=== PATIENT | male | born 1980 | race Caucasian/White ===

== ENCOUNTER 2016-11-07 10:11 | Emergency (ER) | payer MEDICAID ==
[~2016-11-07] VITALS: Ht 180.3 cm; Wt 77.1 kg
[2016-11-07 10:25] VITALS: BP 113/79
[2016-11-07] MEDS ORDERED: Oxycodone/Acetaminophen 5-325 ORAL ONE (10:45)
[2016-11-07 12:25] VITALS: BP 119/74
[2016-11-07] MEDS ORDERED: ROBAXIN-750750 MG PO (13:01)
[2016-11-07] MEDS ORDERED: IBUPROFEN800 MG ORAL (13:01)
--- NOTE | 2016-11-08 07:18 | Emergency Room Report ---
History of Present Illness General Chief Complaint: Pain Source: Patient Present Illness HPI 36 YO M with 1 week upper left back/shoulder pain and left neck stiffness. Worse with looking to left. Worse after playing golf 3 days ago. Worse when carrying 1 year old child. Didnt take any OTC meds. Denies assoc lower extremity weakness, urinary/fecal incontinence, fever/chills , dysuria, history of IVDU or malignancy. Allergies: Coded Allergies: PENICILLINS (Unverified Allergy, Unknown, 11/07/16) Uncoded Allergies: PENICILLIN (Allergy, Unknown, 11/07/16) Patient History Past Medical History: none Past Surgical History: none Pertinent Family History: none Social History: Denies: alcohol use, drug use, smoking Immunizations: UTD Reviewed Nursing Documentation: PMH: Agreed, PSxH: Agreed Nursing Documentation-PMH Hx Gastrointestinal Problems: No - IBS Review of Systems All Other Systems: negative except mentioned in HPI Physical Exam Vital Signs Date Time Temp Pulse Resp B/P Pulse Ox O2 Delivery O2 Flow Rate FiO2 11/07/16 10:25 98.1 92 16 113/79 100 Room Air Sp02 EP Interpretation: reviewed, normal General Appearance: normal inspection, well appearing, no apparent distress, alert, GCS 15, non-toxic Head: normocephalic, atraumatic Eyes: bilateral eye EOMI, bilateral eye PERRL ENT: normal ENT inspection, hearing grossly normal, normal voice Neck: normal inspection, full range of motion, supple, no bony tend Respiratory: normal inspection, lungs clear, normal breath sounds, no respiratory distress, no retraction, no wheezing Cardiovascular #1: regular rate, rhythm, no edema Gastrointestinal: normal inspection, normal bowel sounds, non tender, soft, no guarding, no hernia Genitourinary: no CVA tenderness Musculoskeletal: normal inspection, back normal, normal range of motion, Erika' s Sign negative, other - left upper back/shoulder; muscle spasm, very tight compared to right. Worsening spasm with turning neck to left. No rash or trauma. Neurologic: normal inspection, alert, oriented x3, responsive, lipstick molder III-XII nml as tested, motor strength/tone normal, speech normal Psychiatric: normal inspection, judgement/insight normal, mood/affect normal Skin: normal inspection, normal color, no rash Medical Decision Making Diagnostic Impression: Primary Impression: Neck muscle spasm ER Course 36 YO M with neck spasm, likely SCM, MSK-type pain Spasm broke with valium, percocet in ED Feels much better, improved ROM Rx analgesia, muscle relaxer provided Recommended PMD followup as needed DC home Last Vital Signs Date Time Temp Pulse Resp B/P Pulse Ox O2 Delivery O2 Flow Rate FiO2 11/07/16 12:25 98.1 87 16 119/74 100 Room Air Status: improved Disposition: HOME, SELF-CARE Condition: Improved Scripts Ibuprofen* (MOTRIN*) 800 Mg Tablet 800 MG ORAL THREE TIMES A DAY, #30 TAB 0 Refills Prov: NITIN MARRERO M.D. 11/07/16 Methocarbamol* (ROBAXIN-750*) 750 Mg Tablet 750 MG PO TID, #30 TAB 0 Refills Prov: NITIN MARRERO M.D. 11/07/16 Patient Instructions: Cervical Sprain, [id number] Additional Instructions: -Take ibuprofen with robaxin as needed up to 3x a day for back/shoulder spasm NITIN MARRERO M.D. Nov 08, 2016 07:18
== END 2016-11-07 12:30 | disposition home or self-care (01) ==
LOC: EMR 11:01
DX: M62.838 Other muscle spasm (principal); Z88.0 Allergy status to penicillin
CPT/HCPCS: 99284

== ENCOUNTER 2016-11-29 08:57 | Emergency (ER) | payer MEDICAID ==
[~2016-11-29] VITALS: Ht 180.3 cm; Wt 74.8 kg
[~2016-11-29 08:57] MED LIST: IBUPROFEN800 MG ORAL; ROBAXIN-750750 MG PO
[2016-11-29] MEDS ORDERED: NKM (09:12)
--- NOTE | 2016-11-29 09:23 | Emergency Room Report ---
History of Present Illness General Chief Complaint: Lower Extremity Injury Source: Patient Present Illness HPI Patient was at 3 days after playing golf he noticed some swelling to his right foot Doesn't recall any obvious trauma The pain is localized to the lateral aspect of the foot Denies any obvious foreign body trauma Denies any ankle pain or calf pain Denies any fevers or chills Denies having this problem in the past Pain is worse with ambulation Allergies: Coded Allergies: PENICILLINS (Unverified Allergy, Unknown, 11/07/16) Uncoded Allergies: PENICILLIN (Allergy, Unknown, 11/07/16) Patient History Past Medical History: see triage record Pertinent Family History: none Reviewed Nursing Documentation: PMH: Agreed, PSxH: Agreed Nursing Documentation-PMH Hx Gastrointestinal Problems: Yes - IBS Review of Systems All Other Systems: negative except mentioned in HPI Physical Exam Vital Signs Date Time Temp Pulse Resp B/P Pulse Ox O2 Delivery O2 Flow Rate FiO2 11/29/16 09:05 98.1 89 16 124/78 99 Room Air Sp02 EP Interpretation: reviewed, normal General Appearance: well appearing, no apparent distress Head: normocephalic, atraumatic Eyes: bilateral eye EOMI, bilateral eye PERRL ENT: normal pharynx Neck: supple Respiratory: lungs clear Cardiovascular #1: regular rate, rhythm Musculoskeletal: other - There is a very mild generalized swelling to the right foot compared to the left, patient is tender on palpation of the lateral metacarpal region, no obvious cuts or laceration Skin: other - As above Lymphatic: no adenopathy Procedures Splinting Progress Postop shoe was applied to the right foot, it does give support and immobilization to the foot itself, remaining neurovascularly intact on recheck Patient was also given crutches and remains nonweightbearing On reexamination by myself Medical Decision Making Diagnostic Impression: Primary Impression: Foot pain, right ER Course Patient does report previous fracture on the right foot At this time x-ray imaging was benign multiple differentials including but not limited to, infectious, autoimmune, osteo-pathology entertained Given the lack of any other acute pathology Patient is stable for close outpatient followup and close instructions Other X-Ray Diagnostic Results Other X-Ray Diagnostic Results : EP Interpretation: Yes Findings: no fractures, no dislocation, no soft tissue swelling Number of Views: 3 - right foot Last Vital Signs Date Time Temp Pulse Resp B/P Pulse Ox O2 Delivery O2 Flow Rate FiO2 3/30/17 09:05 98.1 89 16 124/78 99 Room Air Status: improved Disposition: HOME, SELF-CARE Condition: Improved Scripts Acetaminophen With Codeine (T#3) (TYLENOL #3 TAB*) Y Tab 1 TAB ORAL Q8H Y for For Pain, #12 TAB Prov: CANDELARIO CHEUNG D.O. 11/29/16 Ibuprofen* (MOTRIN*) 600 Mg Tablet 600 MG ORAL Q8H Y for For Pain, #20 TAB 0 Refills Prov: CANDELARIO CHEUNG D.O. 11/29/16 Additional Instructions: Patient is provided with the discharge instructions notified to follow up with primary doctor in the next 2-3 days otherwise return to the er with any worsening symptoms. Please note that this report is being documented using [employer] technology. This can lead to erroneous entry secondary to incorrect interpretation by the dictating instrument. CANDELARIO CHEUNG D.O. Nov 29, 2016 09:23
[2016-11-29] MEDS ORDERED: IBUPROFEN600 MG ORAL (10:24)
[2016-11-29] MEDS ORDERED: ACETAMINOPHEN-1 EAC1 ORAL (10:32)
--- NOTE | 2016-11-29 10:34 | Diagnostic Imaging Report ---
Indication: PAIN Technique: 3 views right foot Comparison: none Findings: There is pes cavus deformity. No acute fractures. No dislocations. The joint spaces are preserved Impression: No acute process
[2016-11-29 10:41] VITALS: BP 121/75
== END 2016-11-29 10:43 | disposition home or self-care (01) ==
LOC: EMR 09:39
DX: M79.671 Pain in right foot (principal); M79.89 Other specified soft tissue disorders; Z88.0 Allergy status to penicillin
CPT/HCPCS: 29540; 99284